=== PATIENT | male | born 1990 | race Two or more races ===

== ENCOUNTER 2023-06-18 11:45 | Emergency (ER) | payer SELFPAY ==
[~2023-06-18] VITALS: Ht 188 cm; Wt 91.0 kg
[2023-06-18 11:50] VITALS: O2SAT 99
[2023-06-18] MEDS ORDERED: SULFAMETHOXAZOLE/TRIMETHOPRIM 800/160MG TABLET PO ONE (12:45)
[2023-06-18] MEDS ORDERED: SULF1TAB48 MT (12:51)
[2023-06-18 13:19] VITALS: BP 138/57; PULSE 85; RESP 17; TEMP 99
== END 2023-06-18 13:20 | disposition home or self-care (01) ==
LOC: ER 12:34
DX: L02.414 Cutaneous abscess of left upper limb (principal)
CPT/HCPCS: 99283